=== PATIENT | female | born 1995 | race Caucasian/White ===

== ENCOUNTER 2018-08-29 13:38 | Outpatient (CLI) | payer MEDICAID ==
--- NOTE | 2018-08-29 15:23 | ULT ---
TRANSVAGINAL PELVIC ULTRASOUND WITH DOPPLER: HISTORY: Cysts. COMPARISON: None. TECHNIQUE: Real-time, angeles-scale, color Doppler, and spectral analysis of the pelvis was performed in a transabd ominal and transvaginal approach. FINDINGS: The uterus measures 7.2 x 3.5 x 3.5 cm. Endometrial thickness is 6 mm. An intrauterine device is pr esent. The right ovary measures 2.8 x 1.7 x 2.3 cm. The left ovary measures 2.3 x 1.5 x 1.4 cm. No free fl uid in the pelvis. Normal appearance of both ovaries with adequate vascular flow. IMPRESSION: Normal examination. POS: [facility]
== END 2018-08-29 13:39 | disposition home or self-care (01) ==
LOC: BICULT 13:38
PROVIDERS: ATTEND Advanced Practice Midwife
DX: N83.209 Unspecified ovarian cyst, unspecified side (principal)
CPT/HCPCS: 76856

== ENCOUNTER 2018-11-09 13:32 | Emergency (ER) | payer MEDICAID ==
[2018-11-09] MEDS ORDERED: Ondansetron ODT 4 MG TAB ONE (13:51)
[2018-11-09 14:17] LABS: Bilirubin Negative (Negative); Blood, Urine Negative (Negative); Clarity CLOUDY (Clear); Glucose, Urine (Dipstick) Negative (Negative); Leukocyte Small (Negative); Nitrite Negative (Negative); Protein, Urine (Dipstick) Negative (Neg-Trace); Specific Gravity, Urine 1.029 (1.002-1.036); pH, Urine 5.5 (5.0-9.0)
[2018-11-09 14:20] LABS: Bacteria/HPF None Seen HPF (None Seen); Hyaline Casts/LPF 4-6 HYALINE CAST LPF (0-3 Hyaline); Pathc Cast-AUWi Flag 1.49 (0-2.49); WBC/HPF 0-3 HPF (0-3)
[2018-11-09 14:27] LABS: Pregnancy Test - Urine (BHCG) Negative (Negative); Pregu Control Background? CLEAR/WHITE (CLR/WHITE); Pregu Control Bar Appear? YES (CONTROL BAR); Specific Gravity 1.029 (1.002-1.036)
== END 2018-11-09 15:22 | disposition home or self-care (01) ==
LOC: ERS 13:32
DX: J06.9 Acute upper respiratory infection, unspecified (principal); R11.2 Nausea with vomiting, unspecified
CPT/HCPCS: 81003; 81015; 81025; 87086; 87804; 99284; Q0162

== ENCOUNTER 2019-06-20 16:56 | Emergency (ER) | payer SELFPAY ==
[2019-06-20] MEDS ORDERED: Ketorolac Tromethamine 60 MG/2 ML VIAL ONE (17:37)
== END 2019-06-20 18:10 | disposition home or self-care (01) ==
LOC: ERS 16:56
DX: G89.11 Acute pain due to trauma (principal)
CPT/HCPCS: 96372; 99283; J1885

== ENCOUNTER 2020-01-08 17:01 | Emergency (ER) | payer SELFPAY ==
[2020-01-08 18:40] LABS: Bilirubin 1+ (Negative); Blood, Urine 2+ (Negative); Clarity Clear (Clear); Glucose, Urine (Dipstick) Normal (Negative); Ketone, Urine Trace mg/dL (Negative); Leukocyte 250 Leu/uL (Negative); Nitrite Negative (Negative); Protein, Urine (Dipstick) 20 mg/dL (Neg-Trace); RBC/HPF 0-3 HPF (0-3); Specific Gravity, Urine 1.031 (1.002-1.036); Squamous Epithelial 0-3 HPF (0-3); Urobilinogen Greater than 12 mg/dL (Less than 2)
[2020-01-08 18:43] LABS: Pregnancy Test - Urine (BHCG) Negative (Negative); Pregu Control Background? CLEAR/WHITE (CLR/WHITE); Pregu Control Bar Appear? YES (CONTROL BAR); Specific Gravity 1.016 (1.002-1.036)
[2020-01-08 18:44] LABS: Bacteria/HPF 1+ HPF (None Seen)
== END 2020-01-08 19:52 | disposition home or self-care (01) ==
LOC: ERS 17:01
DX: N39.0 Urinary tract infection, site not specified (principal)
CPT/HCPCS: 81003; 81015; 81025; 99284

== ENCOUNTER 2020-04-22 19:45 | Emergency (ER) | payer SELFPAY ==
[2020-04-22 20:38] LABS: Pregnancy Test - Urine (BHCG) Negative (Negative); Pregu Control Background? CLEAR/WHITE (CLR/WHITE); Pregu Control Bar Appear? YES (CONTROL BAR); Specific Gravity 1.024 (1.002-1.036)
[2020-04-22 20:39] LABS: Bacteria/HPF None Seen HPF (None Seen); Bilirubin Negative (Negative); Blood, Urine Negative (Negative); Clarity Clear (Clear); Glucose, Urine (Dipstick) Normal (Negative); Ketone, Urine Negative (Negative); Leukocyte 25 Leu/uL (Negative); Mucous/LPF Rare LPF (<2+); Nitrite Negative (Negative); Protein, Urine (Dipstick) Negative (Neg-Trace); RBC/HPF 0-3 HPF (0-3); Specific Gravity, Urine 1.024 (1.002-1.036); Urobilinogen Normal mg/dL (Less than 2); WBC/HPF 0-3 HPF (0-3); pH, Urine 6.5 (5.0-9.0)
== END 2020-04-22 21:17 | disposition home or self-care (01) ==
LOC: ERS 19:45
DX: K29.70 Gastritis, unspecified, without bleeding (principal)
CPT/HCPCS: 81003; 81015; 81025; 99284

== ENCOUNTER 2021-04-27 20:51 | Emergency (ER) | payer SELFPAY ==
[2021-04-27] MEDS ORDERED: Acetaminophen 500 MG TAB ONE (21:11)
[2021-04-27 21:48] LABS: #Eosinphils 0.4 thou/uL (0.0-0.7); #Lymphocytes 1.5 thou/uL (1.20-3.40); #Monocytes 0.5 thou/uL (0.11-0.59); #Neutrophils 2.9 thou/uL (1.40-6.50); %Basophils 0.5 % (0.0-1.0); %Eosinophils 7.4 % (0.0-10.0); %Monocytes 8.7 % (0.0-10.0); %Neutrophils 55.3 % (42.0-75.0); Hemoglobin 14.8 g/dL (12.0-16.0); Mean Corpuscular HGB CONC 33.2 g/dL (32.0-36.0); Mean Corpuscular Hemoglobin 30.7 pg (27.0-31.0); Mean Corpuscular Volume 92.7 fL (78.0-98.0); Platelet Count 245 thou/uL (130-400); RBC Distribution Width 11.6 % (11.5-14.5); Red Blood Cell (RBC) Count 4.81 mill/uL (4.20-5.40); White Blood Cell (WBC) Count 5.3 thou/uL (4.8-10.8)
[2021-04-27 22:09] LABS: ALT (SGPT) 14 U/L (8-55); AST (SGOT) 16 U/L (5-34); Albumin 3.7 g/dL (3.5-5.0); Alkaline Phosphatase 89 U/L (40-110); Anion Gap 15 mmol/L (10-20); BUN (Urea Nitrogen) 9 mg/dL (7.0-18.7); Bilirubin, Total 0.2 mg/dL (0.2-1.2); Calc. Creatinine Clearance 0 mL/min (70-130); Calcium 8.9 mg/dL (7.8-10.44); Carbon Dioxide 20 mmol/L (22-29); Chloride 109 mmol/L (98-107); Globulin 3.5 g/dL (2.4-3.5); Glucose 104 mg/dL (70-105); Potassium 4.2 mmol/L (3.5-5.1); Protein, Total 7.2 g/dL (6.0-8.3); Sodium 140 mmol/L (136-145)
[2021-04-28 12:02] LABS: SARS-CoV-2 PCR by NAA DETECTED (NotDetected)
== END 2021-04-27 23:15 | disposition home or self-care (01) ==
LOC: ERS 20:51
DX: U07.1 COVID-19 (principal)
CPT/HCPCS: 36415; 80053; 85025; 99284; U0003; U0005

== ENCOUNTER 2023-06-25 11:47 | Emergency (ER) | payer SELFPAY ==
[2023-06-25] MEDS ORDERED: Diazepam 5 MG TAB ONE (13:00)
[2023-06-25] MEDS ORDERED: Lidocaine 1% w/Epinephrine 1:100K 20 ML VIAL ONE (13:51)
[2023-06-25] MEDS ORDERED: Ketorolac Tromethamine 30 MG/ML VIAL ONE (14:54)
== END 2023-06-25 14:59 | disposition home or self-care (01) ==
LOC: ERS 11:47
DX: N75.1 Abscess of Bartholin's gland (principal)
CPT/HCPCS: 56405; 96372; J1885

== ENCOUNTER 2025-03-16 09:35 | Emergency (ER) | payer SELFPAY | END 2025-03-16 13:40 | disposition left against medical advice (07) | LOC: ERS 09:35 | DX: Z53.21 Procedure and treatment not carried out due to patient leaving prior to being seen by health care provider (principal) ==